=== PATIENT | male | born 1980 | race Caucasian/White ===

== ENCOUNTER 2017-07-02 11:42 | Emergency (ER) | payer BC ==
[~2017-07-02] VITALS: Ht 170.2 cm; Wt 70.3 kg
[2017-07-02] MEDS ORDERED: LORA-259 PO (12:00)
[2017-07-02] MEDS ORDERED: IBUP-1955 PO (12:01)
[2017-07-02] MEDS ORDERED: KETOROLAC TROMETHAMINE 30 MG INJ IM ONE (12:30)
[2017-07-02] MEDS ORDERED: KETOROLAC TROMETHAMINE 30 MG INJ ONE (12:32)
--- NOTE | 2017-07-02 12:42 | NUR ---
PT WAS EVALUATED BY DR LEVINE. PT WAS MEDICATED ACCORDING TO ER MD ORDERS. PT TOLERATED TO MEDICATION WITHOIU COMPLICATIONS. PT WAS D/C TO HOME. D/C INSTRUCTIONS GIVEN TO THE PT.
[2017-07-02 12:44] VITALS: BP 132/69
== END 2017-07-02 12:48 | disposition home or self-care (01) ==
LOC: ER 11:42
DX: M25.511 Pain in right shoulder (principal); Z79.1 Long term (current) use of non-steroidal anti-inflammatories (NSAID); Z79.899 Other long term (current) drug therapy
CPT/HCPCS: A4663; J1885